=== PATIENT | female | born 1995 | race Caucasian/White ===

== ENCOUNTER 2017-02-05 19:34 | Inpatient (IN) | payer MEDICAID, OTHER ==
[~2017-02-05] VITALS: Ht 162.6 cm; Wt 80.3 kg
[~2017-02-05 19:34] MED LIST changes: -COLA100C3 PO; -IBUP600T26 PO; -OXYC1TAB23 PO; -TYLE500T78 PO
[2017-02-05] MEDS ORDERED: NS 1,000 ML IV ONE (20:30)
[2017-02-05] MEDS ORDERED: ONDANSETRON 4MG/2ML VIAL (J2405) IV ONE ×2 (20:30→22:45)
[2017-02-05] MEDS ORDERED: MORPHINE 4 MG/ML 1ML SYRINGE IV PRN (20:30)
[2017-02-05 20:31] LABS: BASO % 0.4 % (0.0-1.0); EOS % 0.5 % (0.0-3.0); LARGE UNSTAINED CELL # 0.2 K/mm3 (0.0-0.4); LARGE UNSTAINED CELL % 1.7 % (0.0-4.0); LYMPH # 2.4 K/mm3 (1.5-6.5); LYMPH % 25.4 % (24.0-44.0); MEAN CORPUSCULAR HEMOGLOBIN 29.1 pg (27.0-33.0); MEAN CORPUSCULAR HGB CONC 33.1 g/dl (32.0-36.5); MEAN CORPUSCULAR VOLUME 87.7 fl (80.0-96.0); MONO # 0.3 K/mm3 (0.0-0.8); NEUTROPHILS # 6.6 K/mm3 (1.8-7.7); PLATELET COUNT, AUTOMATED 329 k/mm3 (150-450); RED CELL DISTRIBUTION WIDTH 12.1 % (11.5-14.5); WHITE BLOOD COUNT 9.5 K/mm3 (4.0-10.0)
[2017-02-05 20:48] LABS: ALBUMIN 3.6 GM/DL (3.2-5.2); ALKALINE PHOSPHATASE 40 U/L (45-117); ALT/SGPT 16 U/L (12-78); ANION GAP 9 MEQ/L (8-16); AST/SGOT 12 U/L (15-37); BILIRUBIN,DIRECT 0.2 MG/DL (0.0-0.2); BILIRUBIN,TOTAL 0.4 MG/DL (0.2-1.0); BLOOD UREA NITROGEN 6 MG/DL (7-18); CALCIUM LEVEL 8.8 MG/DL (8.5-10.1); CARBON DIOXIDE LEVEL 27 MEQ/L (21-32); CHLORIDE LEVEL 104 MEQ/L (98-107); GLUCOSE, FASTING 91 MG/DL (70-105); HCG, SERUM QUANTITATIVE 714 MIU/ML; POTASSIUM SERUM 3.7 MEQ/L (3.5-5.1); SODIUM LEVEL 140 MEQ/L (136-145); TOTAL PROTEIN 7.2 GM/DL (6.4-8.2)
--- NOTE | 2017-02-05 22:50 | REPUSA ---
Clinical history: Pain. Comparison: 02/05/2017. Findings: Real-time transabdominal and transvaginal ultrasound images of the pelvis were obtained. An anteverted uterus is noted, measuring 6.0 x 3.1 x 4.1 cm. The uterus demonstrates normal echotexture and echogenicity. The echogenic lesion described on the prior study in the posterior cul-de-sac is n ot clearly identified at this time. Large amount of bowel is seen in this region. The endometrial str ipe measures 8 mm and is within normal limits. The right ovary measures 3.8 x 2.7 x 3.1 cm. The left ovary measures 4.3 x 2.0 x 2.4 cm. No adnexal masses are seen. Color Doppler flow is seen within both ovaries. There is small amount of free fluid. Impression: The questionable mass in the posterior cul-de-sac described on the prior ultrasound is no t clearly identified on the current exam. There is a large amount of bowel at this site, with surroun ding free fluid. No intrauterine is identified. Follow-up with serial serum beta hCG levels is recommended for further evaluation.
[2017-02-05] MEDS ORDERED: SILVER NITRATE APPLICATOR As Ordered ONE (23:42)
[2017-02-05] MEDS ORDERED: BUPIVACAINE HCL 0.25% 10 ML VIAL As Ordered ONE (23:42)
[2017-02-06] VITALS (11 sets, daily range): BP systolic 100–134; BP diastolic 52–89
[2017-02-06] MEDS ORDERED: LR 1,000 ML IV SCH (02:30)
[2017-02-06] MEDS ORDERED: METOCLOPRAMIDE INJ 10MG/2ML VIAL (J2765) IV PRN (02:30)
[2017-02-06] MEDS ORDERED: PERCOCET 5MG/325MG TAB PO PRN (02:30)
[2017-02-06] MEDS ORDERED: fentaNYL 100 MCG/2 ML INJECTION (J3010) IV PRN (02:30)
[2017-02-06] MEDS ORDERED: ONDANSETRON 4MG/2ML VIAL (J2405) IV PRN (02:30)
[2017-02-06] MEDS ORDERED: IBUP600T26 PO (02:42)
[2017-02-06] MEDS ORDERED: OXYC1TAB23 PO (02:43)
[2017-02-06] MEDS ORDERED: COLA100C3 PO (02:45)
[2017-02-06] MEDS ORDERED: SILVER NITRATE APPLICATOR As Ordered ONE (02:46)
[2017-02-06] MEDS: LR 1,000 ML IV SCH ×3 (03:00→19:00)
[2017-02-06] MEDS ORDERED: diphenhydrAMINE INJ 50MG/ML VIAL (J1200) IV PRN (03:00)
[2017-02-06] MEDS ORDERED: MORPHINE 4 MG/ML 1ML SYRINGE IV PRN (03:00)
[2017-02-06] MEDS ORDERED: TYLE500T78 PO (03:25)
[2017-02-06] MEDS: KETOROLAC 30 MG/ML VIAL (J1885) IV PRN ×3 (08:14→21:35)
[2017-02-06] MEDS: ONDANSETRON 4MG/2ML VIAL (J2405) IV PRN ×3 (10:33→21:35)
[2017-02-06] MEDS ORDERED: PROMETHAZINE 25 MG TAB PO ONE (12:30)
[2017-02-06 12:40] LABS: MEAN CORPUSCULAR HEMOGLOBIN 30.5 pg (27.0-33.0); MEAN CORPUSCULAR HGB CONC 35.2 g/dl (32.0-36.5); MEAN CORPUSCULAR VOLUME 86.6 fl (80.0-96.0); RED CELL DISTRIBUTION WIDTH 12.2 % (11.5-14.5); WHITE BLOOD COUNT 9.2 K/mm3 (4.0-10.0)
[2017-02-06] MEDS ORDERED: NS 1,000 ML IV SCH (14:00)
--- NOTE | 2017-02-06 19:56 | RO ---
DATE OF PROCEDURE: 02/06/2017 PREOPERATIVE DIAGNOSIS: Suspected ectopic . POSTOPERATIVE DIAGNOSIS: Suspected ectopic . PROCEDURE PERFORMED: Operative laparoscopy, removal of ectopic without salpingostomy or salpingectomy. SURGEON: Jermaine Chavarria DO, ZACHARYOG LAPIDARY APPRENTICE: None. ANESTHESIA: General endotracheal. SPECIMENS TO PATHOLOGY: Suspected products of conception (in fragments). ESTIMATED BLOOD LOSS: 20 mL, plus 100-200 mL upon initial entry into the intraperitoneal cavity from suspected extrusion/bleeding of ectopic . FLUIDS REPLACED: 1600 mL lactated Ringer's. DRAINS: Bae catheter. URINE OUTPUT: 200 mL. COMPLICATIONS: None. PREOPERATIVE ANTIBIOTICS: None indicated. INTRAOPERATIVE FINDINGS: 1. Approximately 100-200 mL of blood clot in the posterior cul-de-sac, which contained fragments that grossly had the appearance of products of conception/gestational tissue. These fragments of tissue were removed sequentially until entire removal was noted. (workforce services representative images in chart) 2. Normal appearing bilateral fallopian tubes and ovaries. Normal appearing uterus. No active bleeding throughout the abdomen and pelvis. INDICATION: The patient is a 21-year-old G1, she was evaluated in both Urgent Care and the ER for abdominal pain. It was noted that she had a positive test with a quantitative HCG level of 714. Pelvic ultrasound revealed a uniformly thin endometrial stripe, and a possible approx 6 cm complex mass behind the uterus. Repeat imaging also supported this finding. This mass was also surrounded by a mild to moderate level of free fluid. The patient's abdominal exam revealed significant tenderness/evidence of hemoperitoneum. It was at this point that surgical management was offered over medical management given her present condition/initial presentation. The patient agreed to proceed in this fashion. DESCRIPTION OF PROCEDURE: The patient was counseled and consented on the risks, benefits, indications, and alternatives of the procedure. Informed consent was obtained. She was taken to the operating room with an IV running and placed on operating table in the dorsal supine position. General anesthesia was administered without any difficulty. After her airway was secured, the patient was placed in low lithotomy position. She was prepared and draped in normal sterile fashion. Time-out was performed per protocol. A Bae catheter was placed under sterile conditions. Sterile speculum was placed with good visualization of the cervix. The anterior lip of the cervix was grasped with single-tooth tenaculum and downward traction was applied. A sponge stick was placed into the vagina for additional uterine manipulation during the surgery. Attention was turned to the abdomen (after a glove switch) and attention was turned to the umbilicus. The umbilicus was injected with 5 mL of 0.25% Marcaine. A 10 mm umbilical incision was made with an #11 blade. Through this incision a Veress needle was placed into the intraperitoneal cavity. Intraperitoneal placement was confirmed with ease of flow of normal saline, no return on aspiration and a positive drop test. Opening pressure was 8 mmHg. The abdomen was insufflated with 2 liters of gas. The Veress needle was removed. A size 11 mm XL laparoscopic trocar was placed under direct visualization. Intraperitoneal placement was confirmed. No incidental injury or bleeding was noted. The patient was placed in Trendelenburg. Two additional laparoscopic port sites were placed in the left lower abdomen via 5 mm skin incisions. 5 mm XL laparoscopic trocars were placed under direct visualization. Attention was turned to the pelvis. A significant amount of blood mixed with blood clot and tissue, which looked grossly consistent with products of conception, was noted to be located in the posterior cul-de-sac. This fragmented tissue was removed. The tissue was removed and sent together to pathology for permanent section. The posterior cul-de-sac was suction irrigated and cleared of all clot and tissue debris. The uterus was inspected, and noted to be normal in appearance. Both fallopian tubes were noted to be uniformly thin/nondilated, non-discolored and without any evidence of a growing mass/residual mass. It was at this point that I decided not to proceed with any efforts at tubal surgery in an effort to find any residual tissue in either fallopian tube; I suspected that most of the tissue was in the posterior cul-de- sac given that the fallopian tubes appeared normal. I did not want to jeopardize this young patient's fertility. The entire abdomen and pelvis was inspected; no incidental bleeding or collection of blood was noted. [employer] Lead Engineer images of all the above was taken and placed in the chart. The gas was released from the abdomen, and the laparoscopic cannulas were removed. The fascia at the umbilical incision was closed with #0 Vicryl [id number] stitch. The skin incisions were each closed with #4-0 Monocryl in subcuticular fashion and reinforced with Dermabond. All the instruments were removed from the vagina to include the tenaculum and the sponge stick. Tenaculum sites were noted to be hemostatic after application of silver nitrate. The Bae catheter was removed. All instruments removed from the vagina. Sponge, lap, needle and instrument counts were correct. The patient was transferred to the post anesthesia care unit (PACU) in good and stable condition. She tolerated the procedure very well. The plan is to obtain repeat quantitative beta hcg levels postoperatively to investigate for evidence of residual active gestational tissue. The plan is to treat her with methotrexate should the quantitative beta hcg levels continue to rise inappropriately. SARAH
[2017-02-07] VITALS: BP 128/77
[2017-02-07] MEDS: ACETAMINOPHEN 500 MG TAB PO PRN ×3 (00:49→18:05)
[2017-02-07] MEDS: LR 1,000 ML IV SCH ×2 (03:14→11:00)
[2017-02-07 04:00] VITALS: BP 129/61
[2017-02-07] MEDS: KETOROLAC 30 MG/ML VIAL (J1885) IV PRN ×3 (04:24→20:07)
[2017-02-07 07:08] LABS: MEAN CORPUSCULAR HEMOGLOBIN 30.1 pg (27.0-33.0); MEAN CORPUSCULAR HGB CONC 34.3 g/dl (32.0-36.5); MEAN CORPUSCULAR VOLUME 87.7 fl (80.0-96.0); RED CELL DISTRIBUTION WIDTH 12.4 % (11.5-14.5)
[2017-02-07 07:17] LABS: INR 1.1
[2017-02-07 08:00] VITALS: BP 129/76
[2017-02-07] MEDS: ONDANSETRON 4MG/2ML VIAL (J2405) IV PRN ×2 (09:02→18:05)
[2017-02-07] MEDS ORDERED: METHOTREXATE 50MG/2ML VIAL (J9260) IM ONE (11:00)
[2017-02-07 16:00] VITALS: BP 133/73
[2017-02-07 20:10] VITALS: BP 121/76
[2017-02-08] VITALS: BP_SYST 101; BP_SYST 108; BP_DIAS 55; BP_DIAS 58
[2017-02-08] MEDS: ACETAMINOPHEN 500 MG TAB PO PRN ×2 (00:06→09:06)
[2017-02-08] MEDS: KETOROLAC 30 MG/ML VIAL (J1885) IV PRN (03:26)
[2017-02-08 08:00] VITALS: BP_SYST 125; BP_SYST 139; BP_DIAS 81; BP_DIAS 92
== END 2017-02-08 10:40 | disposition home or self-care (01) | DRG 546 ==
LOC: EDBD 19:34 → M ED 20:31 → M OROP 02-06 00:23 → M PED 02-06 03:12 → M OROP 02-07 09:26 → M PED 02-07 09:28
PROVIDERS: ADMIT Obstetrics & Gynecology; ATTEND Obstetrics & Gynecology
PROC: 10D27ZZ Extraction of Products of Conception, Ectopic, Via Natural or Artificial Opening (ICD-10-PCS; principal; 2017-02-06)
DX: O08.89 Other complications following an ectopic and molar pregnancy (principal)

== ENCOUNTER → 2017-02-05 | Outpatient (CLI) | payer MEDICAID, OTHER ==
[~2017-02-05] MED LIST: COLA100C3 PO; IBUP600T26 PO; NORCOTAB PO; OXYC1TAB23 PO; TYLE500T78 PO
--- NOTE | 2017-02-05 19:07 | REP ---
PELVIC ULTRASOUND: HISTORY: Pain. The uterus is retroverted. The uterus measures 4 cm in transverse x 3.2 cm in AP x 6.3 cm in cephalocaudal dimensions. The endometrium measures 6.2 mm. There is no intrauterine . The right ovary measures 3.3 x 1.9 x 1.6 cm. The left ovary measures 3.4 x 2.1 x 2.4 cm. An echogenic mass is present inferior and posterior to the uterus. The mass abuts the ovaries. The mass measures approximately 6.9 cm in transverse dimension. There is no peristalsis. A small amount of free fluid is present. IMPRESSION: There is an echogenic mass inferior and posterior to the uterus. This may represent an ectopic . There is no intrauterine . A repeat examination is recommended for further evaluation. Signed by Dillon Thomas MD 02/06/2017 09:44 A
== END ==
LOC: M LRY 16:43
PROVIDERS: ATTEND Nurse Practitioner Family
DX: R10.9 Unspecified abdominal pain (principal)

== ENCOUNTER 2017-02-11 21:33 | Inpatient (IN) | payer MEDICAID ==
[~2017-02-11] VITALS: Ht 152.4 cm; Wt 80.2 kg
[2017-02-11 22:43] LABS: BASO % 0.5 % (0.0-1.0); EOS # 0.3 K/mm3 (0.0-0.50); EOS % 3.1 % (0.0-3.0); LARGE UNSTAINED CELL # 0.1 K/mm3 (0.0-0.4); LARGE UNSTAINED CELL % 1.2 % (0.0-4.0); LYMPH % 22.4 % (24.0-44.0); MEAN CORPUSCULAR HEMOGLOBIN 29.6 pg (27.0-33.0); MEAN CORPUSCULAR HGB CONC 34.3 g/dl (32.0-36.5); MEAN CORPUSCULAR VOLUME 86.1 fl (80.0-96.0); MONO # 0.3 K/mm3 (0.0-0.8); MONO % 2.9 % (0.0-5.0); NEUTROPHILS % 69.8 % (36.0-66.0); PLATELET COUNT, AUTOMATED 295 k/mm3 (150-450); RED CELL DISTRIBUTION WIDTH 12.2 % (11.5-14.5); WHITE BLOOD COUNT 8.5 K/mm3 (4.0-10.0)
--- NOTE | 2017-02-12 | REPUSA ---
Clinical history: increasing serum beta hCG level status post laparoscopic procedure. Findings: Real-time transabdominal and transvaginal ultrasound images of the pelvis were obtained. An anteverted uterus is noted, measuring 6.2 x 3.2 x 3.9 cm. The uterus demonstrates normal echotextur e and echogenicity. The endometrial stripe measures 4 mm and is within normal limits. The right ovar y measur 3.6 x 2.8 x 4.3 cm. There is a simple right ovarian cyst measuring 1.2 x 1.3 x 1.9 cm. The l eft ovary measures 3.7 x 2.0 x 2.4 cm.. There is a complex lesion in the left adnexa measuring 1.9 x 1.3 x 1.4 cm. Centrally, there appears to be a small gestational sac, with a tiny yolk sac noted con sistent with an ectopic . Surrounding color Doppler vascularity is noted. Color Doppler flow is seen within both ovaries. There is no evidence of free fluid. Impression: 1. Findings consistent with an ectopic in the left adnexa. No evidence of rupture or hemorr carlos at this time. 2. Simple right ovarian cyst, likely a corpus luteum cyst. 3. The uterus appears grossly unremarkable. 4. No evidence of any significant free fluid. ER physician was notified of these findings at 11:56 PM on 02/11/2017.
[2017-02-12] MEDS ORDERED: ONDANSETRON 4 MG ORAL DISINTEGRATING TAB (S0181) SL PRN (00:30)
[2017-02-12] MEDS ORDERED: ACETAMINOPH W/CODEINE #3 TAB UD PO PRN (00:30)
[2017-02-12] MEDS: ACETAMINOPH W/CODEINE #3 TAB UD PO PRN ×3 (01:18→17:26)
[2017-02-12 02:30] VITALS: BP 126/58
[2017-02-12 09:26] VITALS: BP 117/73
[2017-02-12 17:39] VITALS: BP 128/69
[2017-02-12 20:00] VITALS: BP 117/57
[2017-02-13] VITALS: BP 125/68
[2017-02-13] MEDS: ACETAMINOPH W/CODEINE #3 TAB UD PO PRN ×3 (00:06→23:37)
[2017-02-13 09:00] VITALS: BP 99/58
[2017-02-13 17:00] VITALS: BP 113/58
[2017-02-14] VITALS: BP 126/59
[2017-02-14 08:00] VITALS: BP 111/53
[2017-02-14] MEDS: ACETAMINOPH W/CODEINE #3 TAB UD PO PRN (09:04)
[2017-02-14 09:34] VITALS: BP 111/53
== END 2017-02-14 14:00 | disposition home or self-care (01) | DRG 566 ==
LOC: M ED 22:48 → M ED INP 02-12 00:29 → M PED 02-12 02:30
PROVIDERS: ADMIT Obstetrics & Gynecology; ATTEND Obstetrics & Gynecology
DX: O00.90 Unspecified ectopic pregnancy without intrauterine pregnancy (principal)

== ENCOUNTER → 2017-02-11 | Outpatient (CLI) | payer MEDICAID ==
[~2017-02-11] MED LIST changes: +COLA100C3 PO; +IBUP600T26 PO; +OXYC1TAB23 PO; +TYLE500T78 PO
== END ==
LOC: M SMT 11:25
PROVIDERS: ATTEND Obstetrics & Gynecology
DX: O00.90 Unspecified ectopic pregnancy without intrauterine pregnancy (principal)

== ENCOUNTER 2017-02-21 13:41 | Day surgery (SDC) | payer MEDICAID ==
[~2017-02-21] VITALS: Ht 162.6 cm; Wt 80.3 kg
[~2017-02-21 13:41] MED LIST changes: -ACET30TAB PO; -IBUP800T23 PO
[2017-02-21] MEDS ORDERED: NS 1,000 ML IV ONE (14:15)
[2017-02-21] MEDS ORDERED: KETOROLAC 30 MG/ML VIAL (J1885) IV ONE (14:15)
[2017-02-21] MEDS ORDERED: ONDANSETRON 4MG/2ML VIAL (J2405) IV ONE (14:15)
[2017-02-21 14:57] LABS: BASO % 0.3 % (0.0-1.0); EOS # 0.1 K/mm3 (0.0-0.50); LARGE UNSTAINED CELL # 0.1 K/mm3 (0.0-0.4); LARGE UNSTAINED CELL % 0.9 % (0.0-4.0); LYMPH # 1.8 K/mm3 (1.5-6.5); LYMPH % 16.7 % (24.0-44.0); MEAN CORPUSCULAR HEMOGLOBIN 30.4 pg (27.0-33.0); MEAN CORPUSCULAR HGB CONC 34.3 g/dl (32.0-36.5); MEAN CORPUSCULAR VOLUME 88.7 fl (80.0-96.0); MONO # 0.4 K/mm3 (0.0-0.8); MONO % 3.7 % (0.0-5.0); NEUTROPHILS % 77.5 % (36.0-66.0); PLATELET COUNT, AUTOMATED 301 k/mm3 (150-450); RED CELL DISTRIBUTION WIDTH 12.8 % (11.5-14.5); WHITE BLOOD COUNT 10.3 K/mm3 (4.0-10.0)
[2017-02-21 15:23] LABS: ANION GAP 10 MEQ/L (8-16); BLOOD UREA NITROGEN 8 MG/DL (7-18); CALCIUM LEVEL 8.8 MG/DL (8.5-10.1); CARBON DIOXIDE LEVEL 28 MEQ/L (21-32); CHLORIDE LEVEL 103 MEQ/L (98-107); CREATININE FOR GFR 0.92 MG/DL (0.55-1.02); GLUCOSE, FASTING 101 MG/DL (70-105); POTASSIUM SERUM 4.2 MEQ/L (3.5-5.1); SODIUM LEVEL 141 MEQ/L (136-145)
[2017-02-21] MEDS ORDERED: BUPIVACAINE HCL 0.25% 30 ML VIAL As Ordered ONE (17:57)
[2017-02-21] MEDS ORDERED: fentaNYL 250 MCG/5 ML INJECTION (J3010) As Ordered ONE (18:45)
[2017-02-21] MEDS ORDERED: NEOSTIGMINE 1MG/ML 5 ML SYRINGE (J2710) As Ordered ONE (18:45)
[2017-02-21] MEDS ORDERED: MIDAZOLAM INJ 2 MG/2 ML VIAL (J2250) As Ordered ONE (18:45)
[2017-02-21] MEDS ORDERED: PROPOFOL 200 MG/20 ML VIAL As Ordered ONE (18:46)
[2017-02-21] MEDS ORDERED: ROCURONIUM BROMIDE 50 MG/5 ML VIAL As Ordered ONE (18:46)
[2017-02-21] MEDS ORDERED: GLYCOPYRROLATE INJ 0.2 MG/ML 2 ML VIAL As Ordered ONE (18:46)
[2017-02-21] MEDS ORDERED: ONDANSETRON 4MG/2ML VIAL (J2405) As Ordered ONE ×2 (18:46→21:32)
[2017-02-21] MEDS ORDERED: SUCCINYLCHOLINE 100 MG/5 ML SYRINGE (J0330) As Ordered ONE (18:46)
[2017-02-21] MEDS ORDERED: METOCLOPRAMIDE INJ 10MG/2ML VIAL (J2765) As Ordered ONE (18:46)
[2017-02-21] MEDS ORDERED: LIDOCAINE 2% INJ 100 MG/5 ML SDV (FOR ANES.) As Ordered ONE (18:46)
--- NOTE | 2017-02-21 18:47 | REP ---
PELVIC ULTRASOUND: Real-time sonographic evaluation of the pelvis was performed and compared to prior study of 02/11/2017. Transabdominal and endovaginal technique is utilized. On the exam of 02/11/2017 there are findings compatible with a left sided ectopic . Operative laparoscopy was performed 02/06/2017. Patient presents today with HCG value of 710 reportedly. Patient has left lower quadrant pain. The urinary bladder measures 7.3 x 4.6 x 7.3 cm. The uterus measures 6.2 x 3.7 x 4.1 cm. Endometrial thickness is 10 mm. There is no endometrial fluid identified. Ovaries appear normal in size and echotexture. Right ovary measuring 3.0 x 2.4 x 2.8 cm and the left ovary measuring 3.9 x 2.0 x 2.6 cm. There is blood flow seen in each ovary with duplex Doppler evaluation, with no torsion, RI 0.49 bilaterally. Adjacent to the left ovary there is an echogenic ring like mass which measures approximately 2.2 cm in diameter. There is an internal central area of fluid contains what appears to be a yolk sac. This is highly suspicious for ectopic in the left adnexal region. There is a moderate to large amount of complex fluid which is highly suggestive of ruptured ectopic. IMPRESSION: Findings most consistent with left sided ectopic . Moderate to large amount of complex fluid is highly suggestive of ruptured ectopic . Findings were conveyed to Barbara Kincaid in the emergency department at 4:30 p.m. 02/21/2017. Signed by Sam Plunkett MD 02/22/2017 05:15 P
[2017-02-21] MEDS ORDERED: IBUP800T23 PO (20:06)
[2017-02-21] MEDS ORDERED: ACET30TAB PO (20:08)
[2017-02-21] MEDS ORDERED: LR 1,000 ML IV SCH (20:15)
[2017-02-21] MEDS ORDERED: METOCLOPRAMIDE INJ 10MG/2ML VIAL (J2765) IV PRN (20:15)
[2017-02-21] MEDS ORDERED: fentaNYL 100 MCG/2 ML INJECTION (J3010) IV PRN (20:15)
[2017-02-21] MEDS ORDERED: HYDROmorphone HCL 1 MG/ML SYRINGE (J1170) IV PRN (20:15)
[2017-02-21] MEDS ORDERED: ONDANSETRON 4MG/2ML VIAL (J2405) IV PRN (20:15)
[2017-02-21] MEDS ORDERED: ACETAMINOPH W/CODEINE #3 TAB UD PO PRN (20:30)
[2017-02-21] MEDS ORDERED: ACETAMINOPH W/CODEINE #3 TAB UD As Ordered ONE (21:32)
[2017-02-21 22:20] VITALS: BP 125/57
[2017-02-21 22:40] VITALS: BP 122/66
[2017-02-21] MEDS: KETOROLAC 30 MG/ML VIAL (J1885) IV SCH (23:22)
[2017-02-21 23:40] VITALS: BP 121/59
--- NOTE | 2017-02-22 00:08 | RO ---
DATE OF PROCEDURE: 02/21/2017 PREPROCEDURE DIAGNOSIS: Left ectopic . POSTPROCEDURE DIAGNOSES: 1. Left ectopic . 2. Hemoperitoneum. PROCEDURE: Diagnostic operative laparoscopy with a left salpingectomy. SURGEON: Jaqueline Goyal MD CELL OPERATOR: Aydin Shearer OS-III ANESTHESIA: General endotracheal anesthesia. ESTIMATED BLOOD LOSS: 5 mL from the surgery along with 250 mL of hemoperitoneum which was suctioned. URINE OUTPUT: 50 mL. INTRAVENOUS FLUIDS: 1200 mL of lactated Ringer's solution. SPECIMENS: Left fallopian tube with ectopic. INFECTION CLASSIFICATION: I. PREOPERATIVE ANTIBIOTIC: None. OPERATIVE FINDINGS: Patient with a large amount of blood clot in the abdomen, approximately 250 mL in the posterior and anterior cul-de-sac and left adnexa with what appeared to be approximately 5 cm ectopic . INDICATION FOR OPERATION: This patient is a 21-year-old, 1, who initially presented 2 weeks ago and was evaluated for an ectopic . She ultimately received methotrexate and had appropriate decrease in her quantitaive hCG on day #7 compared to day #4. But approximately a week after receiving her methotrexate, she presented to the emergency room (ER) with acute onset of left abdominal pain and was evaluated there at which time she was noted to have a large amount of blood in her belly on ultrasound as well as development of a left ectopic with adnexal mass with what appears to be a yolk sac. She was counseled on our plan of care to include diagnostic operative laparoscopy with salpingostomy versus salpingectomy. She was consented for the surgery and proceeded. DESCRIPTION OF PROCEDURE: After informed consent was obtained and written consent was reviewed, the patient was brought to the operating room where general endotracheal anesthesia was obtained. She was then placed in the lithotomy position, was prepped and draped in a normal sterile fashion. A time-out in the operating room was then performed, identifying the patient, procedure to be performed, as well as drug allergies. A speculum was then placed revealing the cervix. The anterior lip of the cervix was grasped with a single tooth tenaculum. Hulka tenaculum was then advanced through the cervical os for means to manipulate the uterus. The single tooth tenaculum as well as speculum was removed. Bae catheter was placed and set to gravity. Gloves were changed, and attention was turned to the patient's abdomen where 0.25% Marcaine was infused in the infraumbilical area. This area was incised and utilizing an 11 mm trocar and sleeve, this was advanced through the incision. Intraabdominal placement was confirmed. Pneumoperitoneum was then obtained with CO2 gas. Two additional port sites were then placed, one to the left side of the patient's abdomen and one in the midline, approximately 2 cm above the pubic symphysis. Each one of these incisions were 5 mm. Each one was placed under direct visualization. Next, a left salpingectomy was then performed utilizing Harmonic mimi scalpel device. The mesosalpinx was cauterized and ligated. The fallopian tube was then transected with good hemostasis noted. The specimen was then placed in an Endo Catch bag, and it was brought through the incision. Surgical sites were inspected and noted to be hemostatic. The abdomen was then suctioned and irrigated. The pneumoperitoneum was then released. All the port sites were closed with #4-0 Monocryl, dressed with Dermabond. The Bae catheter was then removed as well as the Hulka tenaculum. The patient was then awakened from general anesthesia and taken to recovery in stable condition. Counts were correct. MTDD
[2017-02-22 00:40] VITALS: BP 108/52
[2017-02-22 02:00] VITALS: BP 104/51
[2017-02-22 03:00] VITALS: BP 115/55
[2017-02-22] MEDS: KETOROLAC 30 MG/ML VIAL (J1885) IV SCH ×2 (03:51→10:00)
[2017-02-22 08:00] VITALS: BP 134/60
== END 2017-02-22 10:45 | disposition home or self-care (01) ==
LOC: M ED 15:13 → M ED INP 17:30 → M SDC 17:30 → M ED 18:10 → M RR INP 21:00 → M PED 22:14 → M SDC 02-22 10:45
PROVIDERS: ATTEND Obstetrics & Gynecology
DX: O00.80 Other ectopic pregnancy without intrauterine pregnancy (principal); K66.1 Hemoperitoneum; F17.290 Nicotine dependence, other tobacco product, uncomplicated; K21.9 Gastro-esophageal reflux disease without esophagitis; E28.2 Polycystic ovarian syndrome; Z88.2 Allergy status to sulfonamides
CPT/HCPCS: 36415; 59151; 76830; 76856; 80048; 81001; 85025; 87086; 88305; 93976; 99284; J0330; J1885; J2250; J2405; J2710; J2765; J3010

== ENCOUNTER → 2017-02-21 | Outpatient (CLI) | payer MEDICAID ==
[~2017-02-21] MED LIST changes: +ACET30TAB PO; +IBUP800T23 PO
== END ==
LOC: M LRY 10:00
PROVIDERS: ATTEND Specialist
DX: O00.80 Other ectopic pregnancy without intrauterine pregnancy (principal)

== ENCOUNTER 2017-12-25 21:52 | Emergency (ER) | payer MEDICAID, OTHER ==
[2017-12-26 01:12] LABS: KETONE, URINE AUTO RFX NEGATIVE (NEGATIVE); LEUKOCYTE ESTERASE UR AUTO RFX NEGATIVE (NEGATIVE); MUCUS, URINE RFX SMALL (NEGATIVE); NITRITE, URINE AUTO RFX NEGATIVE (NEGATIVE); RBC, URINE AUTO RFX 2 /HPF (0-3); SPECIFIC GRAVITY UR AUTO RFX 1.019 (1.002-1.035); SQUAM EPITHELIAL CELL UR AURFX 1 /HPF (0-6); WBC, URINE AUTO RFX 1 /HPF (0-3)
[2017-12-26 01:26] LABS: BASO # 0.1 10^3/uL (0.0-0.2); BASO % 0.6 % (0.0-1.0); EOS # 0.2 10^3/uL (0.0-0.50); EOS % 1.6 % (0.0-3.0); HEMATOCRIT 40.8 % (36.0-47.0); HEMOGLOBIN 14.1 g/dl (12.0-16.0); IMMATURE GRANULOCYTE % 0.2 % (0-3.0); LYMPH # 3.6 10^3/uL (1.5-6.5); LYMPH % 33.8 % (24.0-44.0); MEAN CORPUSCULAR HEMOGLOBIN 30.1 pg (27.0-33.0); MEAN CORPUSCULAR HGB CONC 34.6 g/dl (32.0-36.5); MEAN CORPUSCULAR VOLUME 87.2 fl (80.0-96.0); MONO # 0.7 10^3/uL (0.0-0.8); MONO % 6.7 % (0.0-5.0); NEUTROPHILS # 6.1 10^3/uL (1.8-7.7); NEUTROPHILS % 57.1 % (36.0-66.0); PLATELET COUNT, AUTOMATED 272 10^3/uL (150-450); RED BLOOD COUNT 4.68 10^6/uL (4.00-5.40); RED CELL DISTRIBUTION WIDTH 11.9 % (11.5-14.5); WHITE BLOOD COUNT 10.7 10^3/uL (4.0-10.0)
[2017-12-26 02:20] LABS: ALBUMIN 3.6 GM/DL (3.2-5.2); ALBUMIN/GLOBULIN RATIO 1.03 (1.00-1.93); ALKALINE PHOSPHATASE 40 U/L (45-117); ALT/SGPT 17 U/L (12-78); ANION GAP 9 MEQ/L (8-16); AST/SGOT 19 U/L (7-37); BILIRUBIN,TOTAL 0.4 MG/DL (0.2-1.0); BLOOD UREA NITROGEN 9 MG/DL (7-18); CALCIUM LEVEL 8.4 MG/DL (8.5-10.1); CARBON DIOXIDE LEVEL 27 MEQ/L (21-32); CHLORIDE LEVEL 107 MEQ/L (98-107); CREATININE FOR GFR 0.67 MG/DL (0.55-1.30); GLUCOSE, FASTING 86 MG/DL (70-100); HCG, SERUM QUANTITATIVE 200 MIU/ML; SODIUM LEVEL 143 MEQ/L (136-145); TOTAL PROTEIN 7.1 GM/DL (6.4-8.2)
== END 2017-12-26 03:06 | disposition home or self-care (01) ==
LOC: M ED 21:52
DX: O20.0 Threatened abortion (principal); Z3A.00 Weeks of gestation of pregnancy not specified; Z88.5 Allergy status to narcotic agent; O99.281 Endocrine, nutritional and metabolic diseases complicating pregnancy, first trimester; E28.2 Polycystic ovarian syndrome
CPT/HCPCS: 76801